=== PATIENT | male | born 1985 | race Caucasian/White ===

== ENCOUNTER → 2022-03-05 | Outpatient (REF) | payer OTHER ==
[2022-03-05 10:55] LABS: SEMEN APPEARANCE OPAQUE (OPAQUE); SEMEN VISCOSITY LIQUID (LIQUID); WBC CONCENTRATION <=1 M/ml (<=1 M/ml)
== END ==
LOC: M LAB REF 10:49
PROVIDERS: ATTEND Preventive Medicine Undersea and Hyperbaric Medicine
DX: Z30.2 Encounter for sterilization (principal)